=== PATIENT | male | born 1965 | race American Indian/Alaskan Native ===

== ENCOUNTER 2017-06-16 07:14 | Outpatient (CLI) | payer MEDICARE ==
[2017-06-16] MEDS ORDERED: FLUSH HEPARIN IV ONE ×2 (09:46→09:56)
--- NOTE | 2017-06-16 11:35 | Nuclear Medicine Report ---
Gated MUGA scan: Cardiomyopathy. Following injection of tagged technetium 99m RBCs imaging of the left ventricle was obtained in the 30degrees and 35degrees [place] projections. The average ejection fraction of the left ventricle is 58.4%.
== END 2017-06-16 07:15 | disposition home or self-care (01) ==
LOC: NM 07:14
PROVIDERS: ATTEND Internal Medicine Cardiovascular Disease
DX: I42.0 Dilated cardiomyopathy (principal)
CPT/HCPCS: 78472; A9560; J1642